=== PATIENT | female | born 1980 | race Two or more races ===

== ENCOUNTER 2020-03-21 17:30 | Outpatient (REF) | payer SELFPAY | END 2020-03-21 17:31 | disposition home or self-care (01) | LOC: HO.LAB 17:30 | PROVIDERS: Visit Provider Internal Medicine | DX: Z20.828 Contact with and (suspected) exposure to other viral communicable diseases (principal) | CPT/HCPCS: C9803; U0003 ==

== ENCOUNTER 2020-04-04 07:00 | Outpatient (REF) | payer OTHER, SELFPAY | END 2020-04-04 07:01 | disposition home or self-care (01) | LOC: HO.LAB 07:00 | PROVIDERS: Visit Provider Internal Medicine | DX: Z20.828 Contact with and (suspected) exposure to other viral communicable diseases (principal) | CPT/HCPCS: C9803; U0003 ==